=== PATIENT | male | born 1945 | race Caucasian/White ===

== ENCOUNTER 2016-09-27 10:26 | Day surgery (SDC) | payer MEDICARE, MEDICAID ==
[~2016-09-27 10:26] MED LIST: ACETAMINOPHEN 325 MG TABLET PO PRN; MORPHINE SULFATE 2 MG/ML DISP.SYRIN IV PRN; MORPHINE SULFATE 4 MG/ML SYRG IV PRN; ONDANSETRON HCL/PF 2 MG/ML VIAL IV PRN; PROMETHAZINE HCL 5 MG in DEXTROSE 5 % IN WATER 50 ML IV PRN; RINGERS SOLUTION,LACTATED 1,000 ML IV PRN; oxyCODONE HCL/ACETAMINOPHEN 1 TAB TABLET PO PRN
[2016-09-27] MEDS ORDERED: RINGERS SOLUTION,LACTATED 1,000 ML IV ONE (11:06)
[2016-09-27] MEDS ORDERED: LIDOCAINE HCL/EPINEPHRINE 30 ML VIAL IJ ONE (11:50)
[2016-09-27] MEDS ORDERED: DEXTROSE 5%-0.5 NORMAL SALINE 1,000 ML IV PRN (12:56)
[2016-09-27 14:34] VITALS: BP 129/67
== END 2016-09-27 10:27 | disposition home or self-care (01) ==
LOC: AMB 10:26
PROVIDERS: ATTEND Allergy & Immunology
PROC: 0CBM8ZX Excision of Pharynx, Via Natural or Artificial Opening Endoscopic, Diagnostic (ICD-10-PCS; principal; 2016-09-27 12:15)
DX: D37.02 Neoplasm of uncertain behavior of tongue (principal); I10 Essential (primary) hypertension; F17.200 Nicotine dependence, unspecified, uncomplicated; Z68.26 Body mass index [BMI] 26.0-26.9, adult

== ENCOUNTER 2019-12-10 08:50 | Inpatient (IN) ==
[2019-12-10] MEDS ORDERED: ALBUTEROL SULFATE/IPRATROPIUM 3 ML NEBU IH ONE (09:22)
--- NOTE | 2019-12-10 09:33 | ERNOTE ---
Date of Service: 12/10/19 Time Seen by Provider: 12/10/19 09:11 Stated Complaint: uri Presenting Symptoms:: cough Source: patient Exam Limitations: no limitations Immunizations: IMMUNIZATION HX Immunizations Up to Date Yes History of Influenza Vaccine Yes Hx Pneumococcal Vaccination No Allergies/Adverse Reactions: Allergies No Known Allergies Allergy (Verified 12/10/19 08:59) Home Medications: HOME MEDICATIONS Losartan Potassium [Cozaar] 50 mg PO DAILY 09/10/16 [Last Taken 09/27/16 07:00] Simvastatin [Zocor] 20 mg PO HS 09/10/16 [Last Taken Unknown] Hydrochlorothiazide 50 mg PO DAILY 07/06/19 [Last Taken Unknown] - History of Present Ilness Narrative: Patient presents to the ED with cough. He has felt bad for 3 days now, Started Saturday. Cough, white sputum. Feels run down. Some left sided CP. Saw PCP and had antibiotic shot because his doctor "heard something in his left lung". Does not feel any better since then. No vomiting or abdominal pain. No other clear sick contacts. Timing: constant Severity: moderate Frequency/Possible Cause: Reports: no prior episodes Modifying Factors - Improves: Reports: nothing Modifying Factors - Worsens: Reports: nothing Associated Symptoms: Reports: chest pain/soreness, cough, nasal congestion, muscle aches. Denies: shortness of breath, wheezing, lightheadedness, headache Prior Treatment: Reports: recently seen Review of Systems - Review of Systems Constitutional: Present: other - has felt feverish EYE: Present: no symptoms reported ENT: Present: nose congestion Respiratory: Present: cough Cardiology: Present: See HPI Gastrointestinal/Abdominal: Absent: abdominal pain Genitourinary: Absent: dysuria All Other Systems: All systems neg except as marked Medical History (Last Reviewed 12/10/19 @ 09:31 by Steffen Woodward MD) HTN (hypertension) Hyperlipemia Surgical History: Surgical History (Last Reviewed 12/10/19 @ 09:31 by Steffen Woodward MD) Hx of laparoscopy S/P epidural steroid injection Family History: Family History (Last Reviewed 12/10/19 @ 09:31 by Steffen Woodward MD) Other No pertinent family history Social History: (Last Reviewed 12/10/19 @ 09:31 by Steffen Woodward MD) Social History: adopted: No fpc: No lives independently: Yes caregiver/support person: No Tobacco: Smoking Status: Current every day smoker Smoking cigarettes per day: 8 Alcohol: alcohol intake: current alcohol intake frequency: a few times a month Substance Use: substance use type: does not use Physical Exam - Physical Exam General Appearance: Present: alert, no apparent distress Head Exam: Present: normal inspection, no evidence of injury Eye Exam: Normal inspection: bilateral, PERRL: bilateral Ears, Nose, Throat: Present: normal ENT inspection Neck: Present: normal inspection Respiratory: Present: no respiratory distress, no accessory muscle use, other - tubular breath sounds\\ right base Cardiovascular/Chest: Present: regular rate, rhythm Gastrointestinal/Abdominal: Present: normal bowel sounds, nontender, nondis tended, soft Back Exam: Present: normal range of motion Extremity Exam: Present: normal inspection, normal range of motion Neurological Exam: Present: alert, no motor/sensory deficits Skin Exam: Present: normal color, warm/dry Progress - Results and Orders Patient's Lab Results:: I have reviewed the patient's lab results. - Vital Signs Patient's Vital Signs:: I have reviewed the patient's vital signs. Vital Signs: Vital Signs 12/10/19 08:56 Temperature 36.5 C Pulse Rate 97 Respiratory Rate 18 Blood Pressure 130/68 O2 Sat by Pulse Oximetry 94 - EKG EKG #1 EKG: NSR EKG read: Interp. by me EKG Comments: NSR rate 94. Incomplete RBBB. Non-specific ST/T wave changes, no STEMI noted - X-Ray X-Ray #1 X-Ray: chest Interpretation: Interp. by me X-ray Comments: I reviewed official radiology report for CXR - Progress/Reassessment Chief Complaint: Upper Respiratory Symptoms Progress Note-Subjective: 12/10/19 11:27 Patient has pneumonia with failure of outpatient management with IM ABx. His HR gets upt o 140 with ambulation here and he does not feel well enough to go home. D/W Case management and Dr Piña, patient will be admitted obs. Departure Clinical Impression: Pneumonia, Failure of outpatient treatment - Departure Disposition: Still a patient Condition: Fair
[2019-12-10 09:52] LABS: Hematocrit 42.2 % (42.0-52.0); Hemoglobin 14.2 gm/dL (13.5-18.0); Mean Cell Volume 91.7 fl (78-100); Mean Corpuscular Hemoglobin 30.9 pg (27-31); Mean Corpuscular Hgb Conc 33.6 g/dl (32-36); Mean Platelet Volume 9.3 fl (8-11.3); Neutrophil # 9.7 K/mm3 (1.3-6.0); Neutrophil % 79.1 % (42-75.0); Platelet Count 234 K/mm3 (150-450); Red Cell Distribution Width 12.9 % (11.5-14.0); White Blood Count 12.3 K/mm3 (4.0-10.5)
[2019-12-10 10:04] LABS: ALT 17 U/L (19-67); AST 31 U/L (0-48); Albumin * 3.3 gm/dl (3.4-5.0); Alkaline Phosphatase * 97 U/L (50-170); BUN/Creatinine Ratio 17.1 (9.0-21.6); Bilirubin, Total 0.8 mg/dL (0.0-1.1); Blood Urea Nitrogen 21 mg/dL (6-23); Ca. Corrected For Albumin 9.8 mg/dL (8.4-10.2); Calcium * 9.6 mg/dL (7.9-10.9); Carbon Dioxide 29.2 mmol/L (24-32.6); Chloride 102 mmol/L (97-106); Glucose * 142 mg/dL (70-110); Potassium 3.2 mmol/L (3.4-4.6); Sodium 141 mmol/L (132-142); Total Protein 8.4 gm/dL (6.2-8.2)
[2019-12-10 10:07] LABS: Troponin I Less than 0.017 ng/mL (0.00-0.10)
[2019-12-10] MEDS ORDERED: cefTRIAXone SODIUM 1,000 MG/100 ML BAG IV ONE (10:57)
[2019-12-10] MEDS ORDERED: AZITHROMYCIN 500 MG in DEXTROSE 5 % IN WATER 250 ML IV ONE ×2 (11:15)
--- NOTE | 2019-12-10 12:36 | HP ---
Chief Complaint - Chief Complaint Date of Service: 12/10/19 Time of Service: 12:36 Chief Complaint: cough History of Present Illness: Patient started developing a cough 3 days prior. He went to see his PCP in [place], and was given a couple of antibiotic injections. The cough persisted. He woke up at 3:00 this morning with left-sided chest pain. He came into our ER. He denies fever. Appetite is decreased. He has been drinking fluids. Denies other complaints. ED work-up shows possible right-sided infiltrate on chest x-ray, slight white blood cell count of 12.3, negative troponin. His heart rate would jump up into the 140s with ambulation and he did not feel well enough to go home. Since arriving on the floor, his heart rate jumped up into the 150s and 160s, and I was called to assess. EKG shows possible A. fib with RVR, however portions of the EKG also appear to have P waves, so could be sinus tachycardia. He denies previous heart or lung problems. He takes medication for hypertension and hyperlipidemia. He reports having a stress test that was normal a year and half ago. Denies alcohol use. Medical History (Last Reviewed 12/10/19 @ 11:46 by Smita Hallman RN) HTN (hypertension) Hyperlipemia Surgical History: Surgical History (Last Reviewed 12/10/19 @ 11:47 by Smita Hallman RN) Hx of laparoscopy S/P epidural steroid injection Family History: Family History (Last Reviewed 12/10/19 @ 11:47 by Smita Hallman RN) Other No pertinent family history Social History: (Last Reviewed 12/10/19 @ 11:49 by Smita Hallman RN) Social History: adopted: No senior living: No lives independently: Yes caregiver/support person: No Highest education level completed: high school graduate Service: No Tobacco: Smoking Status: Current every day smoker Smoking cigarettes per day: 6 quit status: has quit before Alcohol: alcohol intake: current Alcohol type: beer alcohol intake frequency: a few times a month Substance Use: substance use type: does not use Dietary Habits: caffeine: No Review Of Systems (GEN) - Review of Systems Generalized/Overall Review: Absent: Fever Respiratory: Present: Cough. Absent: Shortness of Breath Cardiac: Present: Chest Pain. Absent: Edema Abdominal: Absent: Vomiting Genitourinary: Present: No Symptoms Reported Musculoskeletal: Present: No Symptoms Reported Neurological: Present: No Symptoms Reported Immunizations: IMMUNIZATION HX Immunizations Up to Date Yes History of Influenza Vaccine Yes Hx Pneumococcal Vaccination No Allergies/Adverse Reactions: Allergies Allergy/AdvReac Type Severity Reaction Status Date / Time No Known Allergies Allergy Verified 12/10/19 11:49 Home Medications: HOME MEDICATIONS Losartan Potassium [Cozaar] 50 mg PO DAILY 09/10/16 [Last Taken 09/27/16 07:00] Simvastatin [Zocor] 20 mg PO DAILY 09/10/16 [Last Taken Unknown] Hydrochlorothiazide 50 mg PO DAILY 07/06/19 [Last Taken Unknown] Exam - Exam Vital Signs: Vital Signs - Last Taken Temp 36.4 C 12/10/19 11:58 Pulse 93 12/10/19 11:58 Resp 17 12/10/19 11:58 BP 131/64 12/10/19 11:58 Pulse Ox 97 12/10/19 11:58 Constitutional: Present: Alert, Cooperative, No distress - Appears uncomfortable Respiratory: Present: rales - Bilateral posterior, other - Coughs during exam. Absent: wheezing Cardiovascular/Chest: Present: tachycardia, irregularly irregular - Possible, but the level of tachycardia makes it difficult to discern Abdomen: Present: nontender Extremity: Absent: lower extremity edema Neurologic: Present: alert Diagnostic Studies: Abnormal Lab Results 12/10/19 12/10/19 Range/Units 09:30 09:30 WBC 12.3 H (4.0-10.5) K/mm3 RBC 4.60 L (4.7-6.0) M/mm3 Immature Gran % (Auto) 0.60 H (0.001-0.429) % Immature Gran # (Auto) 0.07 H (0.000-0.0310) K/mm3 Neutrophils % 79.1 H (42-75.0) % Lymphocytes % 11.1 L (20-51) % Neutrophils # 9.7 H (1.3-6.0) K/mm3 Lymphocytes # 1.36 L (1.5-3.5) k/mm3 Potassium 3.2 L (3.4-4.6) mmol/L Random Glucose 142 H (70-110) mg/dL ALT 17 L (19-67) U/L Total Protein 8.4 H (6.2-8.2) gm/dL Albumin 3.3 L (3.4-5.0) gm/dl Laboratory Results WBC 12.3 K/mm3 (4.0-10.5) H 12/10/19 09:30 RBC 4.60 M/mm3 (4.7-6.0) L 12/10/19 09:30 Hgb 14.2 gm/dL (13.5-18.0) 12/10/19 09:30 Hct 42.2 % (42.0-52.0) 12/10/19 09:30 MCV 91.7 fl (78-100) 12/10/19 09:30 MCH 30.9 pg (27-31) 12/10/19 09:30 MCHC 33.6 g/dl (32-36) 12/10/19 09:30 RDW 12.9 % (11.5-14.0) 12/10/19 09:30 Plt Count 234 K/mm3 (150-450) 12/10/19 09:30 MPV 9.3 fl (8-11.3) 12/10/19 09:30 Immature Gran % (Auto) 0.60 % (0.001-0.429) H 12/10/19 09:30 Immature Gran # (Auto) 0.07 K/mm3 (0.000-0.0310) H 12/10/19 09:30 Neutrophils % 79.1 % (42-75.0) H 12/10/19 09:30 Lymphocytes % 11.1 % (20-51) L 12/10/19 09:30 Monocytes % 7.8 % (0.0-9) 12/10/19 09:30 Eosinophils % 1.1 % (0.0-3.0) 12/10/19 09:30 Basophils % 0.3 % (0.0-1.0) 12/10/19 09:30 Nucleated RBC % 0.0 k/mm3 (0-1) 12/10/19 09:30 Neutrophils # 9.7 K/mm3 (1.3-6.0) H 12/10/19 09:30 Lymphocytes # 1.36 k/mm3 (1.5-3.5) L 12/10/19 09:30 Monocytes # 1.0 k/mm3 (0.0-1.0) 12/10/19 09:30 Eosinophils # 0.1 k/mm3 (0.0-0.7) 12/10/19 09:30 Absolute Basophils 0.0 k/mm3 (0.0-0.1) 12/10/19 09:30 Sodium 141 mmol/L (132-142) 12/10/19 09:30 Plasma Sodium 142 mmol/L (130-142) 12/10/19 09:30 Potassium 3.2 mmol/L (3.4-4.6) L 12/10/19 09:30 Chloride 102 mmol/L (97-106) 12/10/19 09:30 Carbon Dioxide 29.2 mmol/L (24-32.6) 12/10/19 09:30 Anion Gap 13.0 mmol/L (6.8-13.8) 12/10/19 09:30 BUN 21 mg/dL (6-23) 12/10/19 09:30 Creatinine 1.23 mg/dL (0.4-1.4) 12/10/19 09:30 Est GFR (Non-Af Amer) 61 mL/min (60-130) D 12/10/19 09:30 BUN/Creatinine Ratio 17.1 (9.0-21.6) 12/10/19 09:30 Random Glucose 142 mg/dL (70-110) H 12/10/19 09:30 Calcium 9.6 mg/dL (7.9-10.9) 12/10/19 09:30 Calcium Adj for Albumin 9.8 mg/dL (8.4-10.2) 12/10/19 09:30 Total Bilirubin 0.8 mg/dL (0.0-1.1) 12/10/19 09:30 AST 31 U/L (0-48) 12/10/19 09:30 ALT 17 U/L (19-67) L 12/10/19 09:30 Alkaline Phosphatase 97 U/L (50-170) 12/10/19 09:30 Troponin I Less than 0.017 ng/mL (0.00-0.10) 12/10/19 09:30 Total Protein 8.4 gm/dL (6.2-8.2) H 12/10/19 09:30 Albumin 3.3 gm/dl (3.4-5.0) L 12/10/19 09:30 Influenza Type A Ag Negative (NEGATIVE) 12/10/19 09:35 Influenza Type B Ag Negative (NEGATIVE) 12/10/19 09:35 Group A Strep Rapid Negative (NEGATIVE) 12/10/19 09:35 Assessment/Plan - Assessment/Plan (1) Atrial fibrillation with RVR Assessment: This was not present in the ER but developed since he came over to the floor. EKG shows some possible P waves, so this could also be sinus tachycardia. Will administer 10 mg IV Cardizem, and if his heart rate again increases, will transfer to the ICU for a Cardizem drip. He had some ST depression on his EKG, so we will repeat troponin and repeat EKG in 6 hours. Problem: Acute (2) Pneumonia Assessment: He reports receiving a couple of shots at his PCP office earlier this week. He was started on Rocephin and azithromycin in the ER. Azithromycin can at times contribute to dysrhythmia, so will continue with doxycycline and stop the azithromycin. We will continue the Rocephin IM. He has been afebrile. Was tachypneic in the ED, but current RR of 17-18. He is oxygenating on room air. Problem: Acute (3) Hypokalemia Assessment: Admission potassium level of 3.2. Will start 20 mEq KCl po. Problem: Acute (4) Hypertension Assessment: We will hold his antihypertensives as his blood pressure is borderline in the ER. Problem: Chronic (5) Pleural effusion Assessment: There is a right pleural effusion on chest x-ray, however in comparison with previous done 1111 of 2016, the effusion is chronic. Problem: Chronic
[2019-12-10] MEDS ORDERED: DILTIAZEM HCL 5 MG/ML VIAL IV ONE (12:48)
[2019-12-10] MEDS ORDERED: POTASSIUM CHLORIDE 20 MEQ TABLET.SA PO SCH (13:15)
[2019-12-10] MEDS ORDERED: NORMAL SALINE 1,000 ML IV ONE (14:01)
[2019-12-10] MEDS: DILTIAZEM HCL 125 MG in DEXTROSE 5 % IN WATER 100 ML IV PRN ×2 (14:37)
[2019-12-10] MEDS: guaiFENesin/DEXTROMETHORPHAN SYRUP PO PRN (15:46)
[2019-12-10] MEDS: ENOXAPARIN SODIUM 40 MG/0.4 ML SYRG SC SCH (18:29)
[2019-12-10] MEDS ORDERED: hydrOXYzine HCL 25 MG TABLET PO PRN (19:08)
[2019-12-10] MEDS: DILTIAZEM HCL 30 MG TABLET PO SCH (20:07)
[2019-12-11] MEDS: DILTIAZEM HCL 30 MG TABLET PO SCH (03:46)
[2019-12-11] MEDS ORDERED: DILTIAZEM HCL 5 MG/ML VIAL IV ONE (03:54)
[2019-12-11] MEDS: DILTIAZEM HCL 125 MG in DEXTROSE 5 % IN WATER 100 ML IV PRN ×2 (04:06)
[2019-12-11 07:14] LABS: Albumin * 2.8 gm/dl (3.4-5.0); Anion Gap 12.1 mmol/L (6.8-13.8); BUN/Creatinine Ratio 19.7 (9.0-21.6); Bilirubin, Total 0.7 mg/dL (0.0-1.1); Ca. Corrected For Albumin 9.5 mg/dL (8.4-10.2); Calcium * 8.9 mg/dL (7.9-10.9); Potassium 3.1 mmol/L (3.4-4.6); Total Protein 7.4 gm/dL (6.2-8.2)
--- NOTE | 2019-12-11 07:23 | PN ---
Subjective - Date and Time Seen Date: 12/11/19 Time: 07:18 Subjective Narrative: Patient feels minimally better than yesterday. unable to sleep, still coughing up cloudy sputum. cardizem drip down to 5 mg. Objective - Review of Systems Generalized/Overall Review: Denies: Fever Respiratory: Reports: Cough. Denies: Shortness of Breath Cardiac: Denies: Chest Pain, Edema Abdominal: Denies: Vomiting Genitourinary Symptoms: Reports: No Symptoms Reported Musculoskeletal Complaints: Reports: No Symptoms Reported Neurological: Reports: No Symptoms Reported - Vitals Vitals: Last Vital Signs Temp 36.9 C 12/11/19 07:07 Pulse 112 H 12/11/19 07:07 Resp 20 12/11/19 07:07 BP 100/64 12/11/19 07:07 Pulse Ox 94 12/11/19 07:07 - Abnormal Lab Findings Abnormal Lab Findings: Abnormal Lab Results 12/10/19 12/10/19 12/11/19 Range/Units 09:30 09:30 06:45 WBC 12.3 H (4.0-10.5) K/mm3 RBC 4.60 L (4.7-6.0) M/mm3 Immature Gran % (Auto) 0.60 H (0.001-0.429) % Immature Gran # (Auto) 0.07 H (0.000-0.0310) K/mm3 Neutrophils % 79.1 H (42-75.0) % Lymphocytes % 11.1 L (20-51) % Neutrophils # 9.7 H (1.3-6.0) K/mm3 Lymphocytes # 1.36 L (1.5-3.5) k/mm3 Potassium 3.2 L 3.1 L (3.4-4.6) mmol/L Random Glucose 142 H 126 H (70-110) mg/dL ALT 17 L (19-67) U/L Total Protein 8.4 H (6.2-8.2) gm/dL Albumin 3.3 L 2.8 L (3.4-5.0) gm/dl - Exam Constitutional: Present: Alert, Cooperative, No distress - appears mildly uncomfortable Respiratory: Present: no respiratory distress, rales - mild, posterior, improved from yesterday Cardiovascular/Chest: Present: irregularly irregular - HR 103 Abdomen: Present: soft, nontender Extremity: Absent: lower extremity edema Assessment/Plan - Problems/Diagnosis (1) Atrial fibrillation with RVR Problem: Acute Narrative: cardizem drip currently at 5 mg. he was given 30 mg cardizem po last night. Discussed with pharmacy, and 5 mg cardizem is equal to 180 mg po cardizem, in 24 hours. Will adjust to 90 mg q8h and stop the drip, and monitor his HR. If it remains less than 110, will transfer back to [facility]. He was not in afib with RVR while in the ED yesterday. Will need to keep him here another night, to ensure his heart rate is controlled. BP is appropriate. He can not tell that his heart is out of rhythm, so his afib may be paroxysmal. Will need to discuss anticoagulation, and will refer to cardiology on DC. (2) Pneumonia Problem: Acute Qualifiers: Laterality: right Narrative: He did not improve with 3 days of outpatient treatment. He received rocephin and azithromycin yesterday, and will continue rocephin and doxycycline. He is afebrile, and oxygenating on room air. Guaifenesin/dextromethorphan cough syrup started yesterday. Will send sputum for culture, as he is actively having a productive cough. (3) Hypokalemia Problem: Acute Narrative: Admission potassium was 3.2, and he was started on 20 mEq KCl. Today's potassium was 3.1, so will increase to 3 times daily dosing. (4) Hypertension Problem: Chronic Narrative: Holding home losartan and HCTZ. BP this morning has been 110's/50's. (5) Pleural effusion Problem: Chronic Narrative: There is a right pleural effusion on chest x-ray, however in comparison with previous done 08/03/16, the effusion is chronic. there is no significant change.
[2019-12-11] MEDS: guaiFENesin/DEXTROMETHORPHAN SYRUP PO PRN (08:17)
[2019-12-11] MEDS: POTASSIUM CHLORIDE 20 MEQ TABLET.SA PO SCH ×3 (08:17→17:39)
[2019-12-11] MEDS: DOXYCYCLINE HYCLATE 100 MG in DEXTROSE 5 % IN WATER 100 ML IV SCH ×4 (08:52→20:21)
[2019-12-11] MEDS: DILTIAZEM HCL 90 MG TABLET PO SCH ×2 (09:00→17:39)
[2019-12-11] MEDS: ENOXAPARIN SODIUM 40 MG/0.4 ML SYRG SC SCH (17:38)
[2019-12-11] MEDS ORDERED: GABAPENTIN 300 MG CAPSULE PO SCH (21:00)
[2019-12-12] MEDS: DILTIAZEM HCL 90 MG TABLET PO SCH ×2 (01:10→08:49)
[2019-12-12 06:23] LABS: Hematocrit 40.6 % (42.0-52.0); Hemoglobin 13.4 gm/dL (13.5-18.0); Mean Cell Volume 93.3 fl (78-100); Mean Corpuscular Hemoglobin 30.8 pg (27-31); Mean Platelet Volume 9.1 fl (8-11.3); Neutrophil # 6.2 K/mm3 (1.3-6.0); Neutrophil % 62.6 % (42-75.0); Platelet Count 232 K/mm3 (150-450); Red Blood Count 4.35 M/mm3 (4.7-6.0); Red Cell Distribution Width 12.7 % (11.5-14.0); White Blood Count 9.8 K/mm3 (4.0-10.5)
[2019-12-12 06:28] LABS: Albumin * 2.8 gm/dl (3.4-5.0); Anion Gap 13.7 mmol/L (6.8-13.8); BUN/Creatinine Ratio 17.1 (9.0-21.6); Bilirubin, Total 0.5 mg/dL (0.0-1.1); Ca. Corrected For Albumin 10.2 mg/dL (8.4-10.2); Calcium * 9.6 mg/dL (7.9-10.9); Potassium 3.7 mmol/L (3.4-4.6); Total Protein 7.6 gm/dL (6.2-8.2)
[2019-12-12 06:32] LABS: Total Cells Counted 100
[2019-12-12 06:40] LABS: Atypical (Reactive) Lymph 2 % (0-2); Eosinophil 1 % (0-3); Lymphocyte 27 % (20-51); Monocyte 6 % (0-9); Neutrophil 64 % (42-75); Neutrophil # 6.3 K/mm3 (1.3-6.0)
[2019-12-12 06:41] LABS: Platelet Estimate Normal (NORMAL); RBC Morphology Normal (NORMAL)
[2019-12-12] MEDS: guaiFENesin/DEXTROMETHORPHAN SYRUP PO PRN (07:00)
[2019-12-12] MEDS: POTASSIUM CHLORIDE 20 MEQ TABLET.SA PO SCH (08:49)
--- NOTE | 2019-12-12 09:27 | DS ---
(1) Atrial fibrillation with RVR Problem: Resolved (2) Pneumonia Problem: Acute Qualifiers: Laterality: right (3) Hypokalemia Problem: Resolved (4) Hypertension Problem: Chronic (5) Pleural effusion Problem: Chronic Date of Discharge:: 12/12/19 Hospital Course: Patient started developing a cough 3 days prior to ED visit. He went to see his PCP in [place], and was given a couple of antibiotic injections. The cough persisted. He woke up at 3:00 the morning of admission with left-sided chest p ain. Denied fever. He had been drinking fluids. ED work-up shows possible right-sided infiltrate on chest x-ray, slight white blood cell count of 12.3, negative troponin. His heart rate would jump up into the 140s with ambulation and he did not feel well enough to go home. Soon after arriving on the floor, his heart rate jumped up into the 150s and 160s, and I was called to assess. EKG showed A. fib with RVR. He denies previous heart or lung problems. He takes medication for hypertension and hyperlipidemia. He reports having a stress test that was normal a year and half ago. Denies alcohol use. He required a cardizem drip for approximately 16 hours for HR control, and was transitioned to 90 mg cardizem tid. Home BP meds were held, as his BP was in the low 100's/50's. Can resume if BP is greater than 140/90. His HR remained mostly around 100, but would still increase to the 160s with activity. He agreed to starting eliquis on DC, and seeing a project coach. He'd like to see Dr. Webster. He had some hypokalemia, with potassium down to 3.1. Resolved with po KCL. He remained afebrile during his stay, and did not require oxygen. His cough improved and he reported feeling fine on the day of DC. Procedures Performed: none Results and Findings: Pending Mircobiology Results 12/11/19 07:18 Expectorate Sputum Sputum Culture - Preliminary No Pathogens Isolated 12/10/19 09:40 Blood Blood Culture - Preliminary NO GROWTH 24 HOURS 12/10/19 09:30 Blood Blood Culture - Preliminary NO GROWTH 24 HOURS Lab Pending Results 12/10/19 09:30: WBC 12.3 H, RBC 4.60 L, Hgb 14.2, Hct 42.2, MCV 91.7, MCH 30.9, MCHC 33.6, RDW 12.9, Plt Count 234, MPV 9.3, Immature Gran % (Auto) 0.60 H, Immature Gran # (Auto) 0.07 H, Neutrophils % 79.1 H, Lymphocytes % 11.1 L, Monocytes % 7.8, Eosinophils % 1.1, Basophils % 0.3, Nucleated RBC % 0.0, Neutrophils # 9.7 H, Lymphocytes # 1.36 L, Monocytes # 1.0, Eosinophils # 0.1, Absolute Basophils 0.0 12/10/19 09:30: Sodium 141, Plasma Sodium 142, Potassium 3.2 L, Chloride 102, Carbon Dioxide 29.2, Anion Gap 13.0, BUN 21, Creatinine 1.23, Est GFR (Non-Af Amer) 61 D, BUN/Creatinine Ratio 17.1, Random Glucose 142 H, Calcium 9.6, Calcium Adj for Albumin 9.8, Total Bilirubin 0.8, AST 31, ALT 17 L, Alkaline Phosphatase 97, Troponin I Less than 0.017, Total Protein 8.4 H, Albumin 3.3 L 12/10/19 09:35: Group A Strep Rapid Negative 12/10/19 09:35: Influenza Type A Ag Negative, Influenza Type B Ag Negative 12/10/19 12:59: Troponin I Less than 0.017 12/10/19 18:54: Troponin I Less than 0.017 12/11/19 06:45: Sodium 140, Plasma Sodium 140, Potassium 3.1 L, Chloride 102, Carbon Dioxide 29.0, Anion Gap 12.1, BUN 23, Creatinine 1.17, Est GFR (Non-Af Amer) 65, BUN/Creatinine Ratio 19.7, Random Glucose 126 H, Calcium 8.9, Calcium Adj for Albumin 9.5, Total Bilirubin 0.7, AST 29, ALT 27, Alkaline Phosphatase 96, Total Protein 7.4, Albumin 2.8 L 12/12/19 06:13: WBC 9.8 D, RBC 4.35 L, Hgb 13.4 L, Hct 40.6 L, MCV 93.3, MCH 30.8, MCHC 33.0, RDW 12.7, Plt Count 232, MPV 9.1, Immature Gran % (Auto) 0.60 H, Immature Gran # (Auto) 0.06 H, Neutrophils % 62.6, Neutrophils % (Manual) 64, Lymphocytes % 25.6, Lymphocytes % (Manual) 27, Monocytes % 8.1, Monocytes % (Manual) 6, Eosinophils % 2.7, Eosinophils % (Manual) 1, Basophils % 0.4, Nucleated RBC % 0.0, Neutrophils # 6.2 H, Neutrophils # (Manual) 6.3 H, Lymphocytes # 2.51, Lymphocytes # (Manual) 2.6, Monocytes # 0.8, Monocytes # (Manual) 0.6, Eosinophils # 0.3, Eosinophils # (Manual) 0.1, Absolute Basophils 0.0, Atypic/Reactive Lymphs 2, Platelet Estimate Normal, RBC Morphology Normal 12/12/19 06:13: Sodium 148 H, Plasma Sodium 148 H, Potassium 3.7, Chloride 106, Carbon Dioxide 32.0, Anion Gap 13.7, BUN 20, Creatinine 1.17, Est GFR (Non-Af Amer) 65, BUN/Creatinine Ratio 17.1, Random Glucose 120 H, Calcium 9.6, Calcium Adj for Albumin 10.2, Total Bilirubin 0.5, AST 20, ALT 25, Alkaline Phosphatase 84, Total Protein 7.6, Albumin 2.8 L Discharge Location: Home Disposition: Home self-care Condition: Fair Discharge Activity: Activity as tolerated Discharge Diet: Resume usual diet Referrals: Carrie Piña DO [Staff Physician] - One Week Additional Patient Instructions (free text): Please make cardiology appointment with Dr Webster at [facility]. Prescriptions (Any new or edited meds): Cefdinir 300 mg PO BID #7 cap Transmission Status: Pending to [place], [place] Doxycycline Hyclate 100 mg PO BID #7 tablet.dr Transmission Status: Pending to [place], [place] Apixaban [Eliquis] 5 mg PO BID #60 tab Transmission Status: Received by [place], [place] Complete Home Medications List: Complete Home Medication List: Losartan Potassium [Cozaar] 50 mg PO DAILY 09/10/16 Simvastatin [Zocor] 20 mg PO DAILY 09/10/16 Hydrochlorothiazide 50 mg PO DAILY 07/06/19 Apixaban [Eliquis] 5 mg PO BID #60 tab 12/11/19 Cefdinir 300 mg PO BID #7 cap 12/12/19 Doxycycline Hyclate 100 mg PO BID #7 tablet. 12/12/19
[2019-12-12] MEDS: DOXYCYCLINE HYCLATE 100 MG in DEXTROSE 5 % IN WATER 100 ML IV SCH ×2 (10:01)
[2019-12-12 13:17] VITALS: BP 118/59
== END 2019-12-12 13:15 | disposition home or self-care (01) | DRG 308 ==
LOC: ER 08:50 → MS 08:50 → SCU 14:44 → MS 12-11 09:28
PROVIDERS: ADMIT Family Medicine; ATTEND Family Medicine
DX: I10 Essential (primary) hypertension; E78.5 Hyperlipidemia, unspecified; E87.6 Hypokalemia; F17.210 Nicotine dependence, cigarettes, uncomplicated; J18.9 Pneumonia, unspecified organism; I48.91 Unspecified atrial fibrillation
CPT/HCPCS: 36415; 71020; 71046; 80053; 84484; 85007; 85025; 87040; 87070; 87081; 87400; 87430; 87449; 93005; 94640; 96365; 96366; 96367; 96375; 99284; 99285; G0378